=== PATIENT | male | born 1990 | race Two or more races ===

== ENCOUNTER 2020-08-13 17:23 | Emergency (ER) | payer OTHER ==
[~2020-08-13] VITALS: Ht 170.2 cm; Wt 78.0 kg
--- NOTE | 2020-08-13 17:40 | NUR ---
PT BIB SELF C/O 'SEVRE MIGRAINE' SINCE 3 DAYS AGO. PT STATES THAT HIS HEADACHE IS THROBBING AND THAT PAIN IS ABOUT 8/10. VS CHECKED, AWAITING MD ANTON.
[2020-08-13] MEDS ORDERED: KETOROLAC TROMETHAMINE INJ 30 MG/ML VIAL ONE ×2 (17:41→17:56)
[2020-08-13] MEDS ORDERED: METOCLOPRAMIDE HCL 10 MG/2 ML VIAL ONE (17:42)
--- NOTE | 2020-08-13 17:45 | NUR ---
PT OUT OF CT OF THE HEAD.
[2020-08-13] MEDS ORDERED: METOCLOPRAMIDE HCL 10 MG/2 ML VIAL IV ONE (18:00)
[2020-08-13] MEDS ORDERED: KETOROLAC TROMETHAMINE INJ 30 MG/ML VIAL IV ONE (18:00)
--- NOTE | 2020-08-13 18:00 | NUR ---
BACK FROM CT
[2020-08-13 18:53] VITALS: BP 138/71
--- NOTE | 2020-08-13 18:53 | NUR ---
Patient discharged to home in stable condition. Written and verbal after care instructions given. Patient verbalizes understanding of instruction. IV removed. Catheter intact and site benign. Pressure and 4x4 applied to site. No bleeding noted.
== END 2020-08-13 18:53 | disposition home or self-care (01) ==
LOC: ER 17:30
DX: R51.9 Headache, unspecified (principal); F17.200 Nicotine dependence, unspecified, uncomplicated
CPT/HCPCS: 70450; 96374; 96375; 99284; J1885; J2765